=== PATIENT | male | born 1995 | race Two or more races ===

== ENCOUNTER 2020-11-08 00:13 | Emergency (ER) | payer OTHER ==
[~2020-11-08] VITALS: Ht 165.1 cm; Wt 83.9 kg
== END 2020-11-08 06:16 | disposition home or self-care (01) ==
LOC: ER 00:13
DX: R60.0 Localized edema (principal); K13.0 Diseases of lips

== ENCOUNTER 2021-04-25 08:00 | Outpatient (CLI) | payer OTHER | END 2021-04-25 08:30 | disposition home or self-care (01) | LOC: PPH VACUNA 08:00 | DX: Z23 Encounter for immunization (principal) ==

== ENCOUNTER 2021-05-03 08:21 | Outpatient (CLI) | payer OTHER | END 2021-05-03 15:00 | disposition home or self-care (01) | LOC: LAB 08:21 | PROVIDERS: ATTEND Emergency Medicine Pediatric Emergency Medicine | DX: Z03.818 Encounter for observation for suspected exposure to other biological agents ruled out (principal) ==

== ENCOUNTER 2021-05-16 08:00 | Outpatient (CLI) | payer OTHER | END 2021-05-16 08:30 | disposition home or self-care (01) | LOC: PPH VACUNA 08:00 | DX: Z23 Encounter for immunization (principal) ==

== ENCOUNTER 2021-11-27 08:00 | Outpatient (CLI) | payer OTHER | END 2021-11-27 08:30 | disposition home or self-care (01) | LOC: PPH VACUNA 08:00 | PROVIDERS: ATTEND Emergency Medicine Pediatric Emergency Medicine | DX: Z23 Encounter for immunization (principal) ==